=== PATIENT | female | born 1985 | race Caucasian/White ===

== ENCOUNTER 2021-03-03 16:16 | Emergency (ER) | payer SELFPAY ==
[2021-03-03 16:19] VITALS: BP 132/89; PULSE 108; RESP 18; TEMP 36.7; O2SAT 100; BMI 33.6
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
--- NOTE | 2021-03-03 17:18 | PC.NURSE ---
Sent pt to bathroom , to wash feet and hands. Put socks on feet, placed in a gown, and gave warm blankets.
[2021-03-03 17:21] LABS: Add Urine Microscopic? YES; Bilirubin Urine 1+ (Negative); Blood Urine 3+ (Negative); Glucose Urine UA Norm (Normal); Ketones Urine 1+ (Negative); Leukocyte Esterase Urine Negative (Negative); Nitrate Urine Negative (Negative); Protein Urine 1+ (Negative); Urine Appearance Cloudy (CLEAR); Urine Color Dark Yellow (Yellow); Urobilinogen Urine 1 mg/dL (Negative); pH Urine 5 (5-7)
[2021-03-03 17:25] VITALS: BP 135/88; PULSE 97; RESP 18; O2SAT 99
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
[2021-03-03 17:29] VITALS: BP 135/88; PULSE 112; RESP 18; O2SAT 99
[2021-03-03 17:35] LABS: Add Urine Culture? No; Bacteria Urine 1+ /hpf; Fine Granular Casts Urine 0-4 /lpf; Mucus Urine 2+ /hpf; Squamous Epithelial Cell Urine 0-4 /hpf (0-5); WBC Urine 0-4 /hpf (0-5)
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
[2021-03-03 17:57] LABS: Basophils % 0.3 %; Eosinophils # 0.1 10^3/uL (0.0-0.8); Eosinophils % 0.5 %; Hematocrit 39.6 % (37.0-47.0); Hemoglobin 12.8 g/dL (11.5-15.3); Lymphocytes # 1.3 10^3/uL (0.8-4.8); Lymphocytes % 8.7 %; Mean Corpuscular HGB Conc 32.3 g/dL (30.0-36.0); Mean Corpuscular Hemoglobin 27.1 pg (28.0-34.0); Mean Corpuscular Volume 83.7 fL (81-99); Mean Platelet Volume 9.8 fL (7.4-10.4); Monocytes # 0.6 10^3/uL (0.2-0.9); Monocytes % 4.2 %; Neutrophils # 12.96 10^3/uL (1.8-7.7); Neutrophils % 85.8 %; Nucleated Red Blood Cells % 0 %; Platelet Count 396 10^3/cmm (130-400); Red Blood Count 4.73 10^6/uL (4.1-5.3); Red Cell Distribution Width 13.6 % (12.1-15.1); White Blood Count 15.1 10^3/uL (4.0-10.0)
[2021-03-03 18:12] LABS: Alanine Aminotransferase 16 U/L (0-33); Albumin Level 4.4 g/dL (3.5-5.2); Alkaline Phosphatase 61 IU/L (35-105); Anion Gap 14.5 (5-19); Aspartate Amino Transferase 22 U/L (0-32); Blood Urea Nitrogen 11 mg/dL (6-20); Calcium 9.4 mg/dL (8.5-10.5); Carbon Dioxide 25 mmol/L (22-29); Chloride 104 mmol/L (98-107); Globulin 2.5 g/dL (1.3-4.6); Glomerular Filtration Rate 96.4 mL/min (90-130); Glucose 87 mg/dL (65-115); Osmolality Calculated 289 mOsm/kg (285-295); Potassium 3.5 mmol/L (3.5-5.1); Sodium 140 mmol/L (136-145); Total Bilirubin 0.6 mg/dL (0.15-1.2); Total Protein 6.9 g/dL (6.6-8.7)
[2021-03-03] MEDS: tetanus-dipt-pertussis 0.5 mL SDV IM (18:24)
[2021-03-03 18:29] VITALS: BP 143/97; PULSE 103; RESP 18; TEMP 37.2; O2SAT 98
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
== END 2021-03-03 18:51 | disposition home or self-care (01) ==
PROVIDERS: Emergency Provider Family Medicine; PCP Family Medicine
DX: S06.0X0A Concussion without loss of consciousness, initial encounter (principal); Y04.2XXA Assault by strike against or bumped into by another person, initial encounter; Z23 Encounter for immunization
CPT/HCPCS: 36415; 70450; 70486; 80053; 81001; 85025; 90471; 90715; 99283

== ENCOUNTER 2024-05-12 14:14 | Emergency (ER) | payer MEDICAID, SELFPAY ==
[2024-05-12 14:30] VITALS: BP 99/61; PULSE 109; RESP 14; TEMP 36.7; O2SAT 98; BMI 29.4
[2024-05-12 15:05] LABS: Basophils # 0.1 10^3/uL (0.0-0.1); Basophils % 0.4 %; Eosinophils % 0.1 %; Lymphocytes # 0.8 10^3/uL (0.8-4.8); Lymphocytes % 4.9 %; Mean Corpuscular HGB Conc 31.2 g/dL (30-55); Mean Corpuscular Hemoglobin 22.6 pg (27-33); Mean Corpuscular Volume 72.5 fl (85-98); Mean Platelet Volume 9.2 fL (7.4-10.4); Monocytes # 0.9 10^3/uL (0.2-0.9); Neutrophils # 13.67 10^3/uL (1.8-7.7); Neutrophils % 87.8 %; Nucleated Red Blood Cells % 0 %; Platelet Count 304 10^3/cmm (157-399); Red Blood Count 4.69 10^6/uL (3.85-5.65); Red Cell Distribution Width 20.7 % (12.1-15.1); White Blood Count 15.58 10^3/uL (3.29-11.43)
[2024-05-12 15:14] LABS: HCG, Serum Qual Negative (Negative)
[2024-05-12 15:19] LABS: Alanine Aminotransferase 9 U/L (0-33); Albumin Level 3.7 g/dL (3.5-5.2); Alkaline Phosphatase 70 U/L (35-105); Anion Gap 16.8 (5-19); Aspartate Amino Transferase 13 U/L (0-32); Blood Urea Nitrogen 10 mg/dL (6-20); Calcium 8.9 mg/dL (8.5-10.5); Carbon Dioxide 23 mmol/L (22-29); Chloride 98 mmol/L (98-107); Creatinine Clr Calc Pharmacy 90.9648; Globulin 3.2 g/dL (1.3-4.6); Glomerular Filtration Rate 81.2 mL/min (90-130); Glucose 131 mg/dL (65-115); Lipase 14 U/L (13-60); Osmolality Calculated 281 mOsm/kg (285-295); Sodium 135 mmol/L (136-145); Total Bilirubin 0.7 mg/dL (0.15-1.2); Total Protein 6.9 g/dL (6.6-8.7)
[2024-05-12 15:22] LABS: Potassium 2.8 mmol/L (3.5-5.1)
--- NOTE | 2024-05-12 16:26 | CTR_ITS ---
PROCEDURE INFORMATION: Exam: CT Abdomen And Pelvis With Contrast Exam date and time: 05/12/2024 5:51 PM Age: 38 years old Clinical indication: Abdominal pain; Localized; Right; Prior surgery; Surgery date: 6+ months; Surgery type: Gb TECHNIQUE: Imaging protocol: Computed tomography of the abdomen and pelvis with contrast. Radiation optimization: All CT scans at this facility use at least one of these dose optimization techniques: automated exposure control; mA and/or kV adjustment per patient size (includes targeted exams where dose is matched to clinical indication); or iterative reconstruction. Contrast material: OMNI 350; Contrast volume: 80 ml; Contrast route: INTRAVENOUS (IV); COMPARISON: US OB >= 14 wk fetus twins 07/02/2017 9:50 AM RADIATION DOSE METRICS: Total DLP (mGy-cm): 541.01 FINDINGS: Lungs: Lung bases are clear. No pleural effusion. Liver: Normal. No mass. Gallbladder and biliary ducts: The gallbladder has been resected. Pancreas: Normal. No ductal dilation. Spleen: Normal. No splenomegaly. Adrenal glands: Normal. No mass. Kidneys and ureters: There is diffuse abnormal low density throughout the right kidney in the right kidney is somewhat enlarged. Stomach and bowel: Unremarkable. No obstruction. No mucosal thickening. Appendix: No evidence of appendicitis. Intraperitoneal space: Unremarkable. No free air. No significant fluid collection. Vasculature: Unremarkable. No abdominal aortic aneurysm. Lymph nodes: Unremarkable. No enlarged lymph nodes. Urinary bladder: Diffuse bladder wall thickening is noted. Reproductive: Unremarkable as visualized. Bones/joints: Unremarkable. No acute fracture. Soft tissues: Unremarkable. CT/CT abdomen pelvis w con* [id number] IMPRESSION: Acute cystitis and right-sided pyelonephritis
--- NOTE | 2024-05-12 16:28 | ED_ITS ---
HPI - Abdominal Pain 2 General: Chief Complaint: Abdominal Pain Stated Complaint: Right side pain Time Seen by Provider: 05/12/24 16:23 History of Present Illness: Patient presents with right-sided abdominal and flank pain. This been going on for couple of days now. No nausea or vomiting. No dysuria. No altered mental status. No chest pain. Review of Systems 2 Narrative: Constitutional symptoms: Negative except as documented in HPI. Skin symptoms: Negative except as documented in HPI. Eye symptoms: Negative except as documented in HPI. ENMT symptoms: Negative except as documented in HPI. Respiratory symptoms: Negative except as documented in HPI. Cardiovascular symptoms: Negative except as documented in HPI. Gastrointestinal symptoms: Negative except as documented in HPI. Genitourinary symptoms: Negative except as documented in HPI. Musculoskeletal symptoms: Negative except as documented in HPI. Neurologic symptoms: Negative except as documented in HPI. Psychiatric symptoms: Negative except as documented in HPI. Endocrine symptoms: Negative except as documented in HPI. Physical Exam 2 Narrative: EXAM NARRATIVE: General: Alert, no acute distress. Skin: Warm, dry. Head: Normocephalic, atraumatic. Neck: Supple, trachea midline. Eye: Extraocular movements are intact. Ears, nose, mouth and throat: mucosa moist. Cardiovascular: Regular, Normal peripheral perfusion. Respiratory: Lungs are clear to auscultation, respirations are non-labored, breath sounds are equal, Symmetrical chest wall expansion. Gastrointestinal: Soft, Nontender, Non distended Musculoskeletal: Normal ROM, no deformity. Neurological: Alert and oriented, No focal neurological deficit observed. Psychiatric: Cooperative, appropriate mood & affect. Course 2 Vital Signs: Vital signs: Vital Signs Temperature 98.1 F 05/12/24 14:30 Pulse Rate 100 05/12/24 16:45 Respiratory Rate 16 05/12/24 16:45 Blood Pressure 110/77 05/12/24 16:45 Pulse Oximetry 100 05/12/24 16:45 Oxygen Delivery Me thod Room Air 05/12/24 16:45 MDM - Abdominal Pain Medical Decision Making Medical decision making: Differential diagnosis including but not limited to and based on the above HPI, review of systems and physical exam: Ureterolithiasis. Urinary tract infection. Appendicitis. Cholecystis. Musculoskeletal / back pain. Pyelonephritis Orders placed to evaluate differential diagnosis based on the above differential, HPI and physical exam Lab Review: Laboratory results were reviewed and interpreted by myself the emergency room physician. Patient does have some leukocytosis with a white count of 16. Potassium is low at 2.8 no renal failure. Liver enzymes are normal. Lipase is normal. Urinalysis is significant for urinary tract infection. CT of the abdomen and pelvis: Significant for cystitis and right-sided pyelonephritis. This was reviewed and interpreted by myself the emergency room physician. I also reviewed the radiology report. Reexamination: Assessment and plan: Cystitis Pyelonephritis ?IV fluids and IV Rocephin. IV Toradol. - Discharged home - Discussed findings and plan with patient. Answered any questions. - All laboratory values were reviewed and interpreted personally by myself, the ER physician - All imaging was reviewed and interpreted personally by myself, the ER physician. - Evaluation and treatment of this problem were appropriate in the emergency setting Lab Data 05/12/24 14:56 05/12/24 14:56 Labs/Radiology: Radiology Impressions Abdomen/Pelvis CT 05/12/24 16:26 IMPRESSION: Acute cystitis and right-sided pyelonephritis Laboratory Results WBC 15.58 10^3/uL (3.29-11.43) H 05/12/24 14:56 RBC 4.69 10^6/uL (3.85-5.65) 05/12/24 14:56 Hgb 10.60 g/dL (11.27-16.99) L 05/12/24 14:56 Hct 34.0 % (36-47) L 05/12/24 14:56 MCV 72.5 fl (85-98) L 05/12/24 14:56 MCH 22.6 pg (27-33) L 05/12/24 14:56 MCHC 31.2 g/dL (30-55) 05/12/24 14:56 RDW 20.7 % (12.1-15.1) H 05/12/24 14:56 Plt Count 304 10^3/cmm (157-399) 05/12/24 14:56 MPV 9.2 fL (7.4-10.4) 05/12/24 14:56 Neut % (Auto) 87.8 % 05/12/24 14:56 Lymph % (Auto) 4.9 % 05/12/24 14:56 [place] % (Auto) 6.0 % 05/12/24 14:56 Eos % (Auto) 0.1 % 05/12/24 14:56 Baso % (Auto) 0.4 % 05/12/24 14:56 Neut # (Auto) 13.67 10^3/uL (1.8-7.7) H 05/12/24 14:56 Lymph # (Auto) 0.8 10^3/uL (0.8-4.8) 05/12/24 14:56 [place] # (Auto) 0.9 10^3/uL (0.2-0.9) 05/12/24 14:56 Eos # (Auto) 0.0 10^3/uL (0.0-0.8) 05/12/24 14:56 Baso # (Auto) 0.1 10^3/uL (0.0-0.1) 05/12/24 14:56 Nucleated RBC % (auto) 0 % 05/12/24 14:56 Nucleated RBCs # 0.0 /100WBC 05/12/24 14:56 Sodium 135 mmol/L (136-145) L 05/12/24 14:56 Potassium 2.8 mmol/L (3.5-5.1) L* 05/12/24 14:56 Chloride 98 mmol/L (98-107) 05/12/24 14:56 Carbon Dioxide 23 mmol/L (22-29) 05/12/24 14:56 Anion Gap 16.8 (5-19) 05/12/24 14:56 BUN 10 mg/dL (6-20) 05/12/24 14:56 Creatinine 0.8 mg/dL (0.5-0.9) 05/12/24 14:56 GFR Calculation 81.2 mL/min (90-130) L 05/12/24 14:56 Glucose 131 mg/dL (65-115) H 05/12/24 14:56 Calculated Osmolality 281 mOsm/kg (285-295) L 05/12/24 14:56 Calcium 8.9 mg/dL (8.5-10.5) 05/12/24 14:56 Total Bilirubin 0.7 mg/dL (0.15-1.2) 05/12/24 14:56 AST 13 U/L (0-32) 05/12/24 14:56 ALT 9 U/L (0-33) 05/12/24 14:56 Alkaline Phosphatase 70 U/L (35-105) 05/12/24 14:56 Total Protein 6.9 g/dL (6.6-8.7) 05/12/24 14:56 Albumin 3.7 g/dL (3.5-5.2) 05/12/24 14:56 Globulin 3.2 g/dL (1.3-4.6) 05/12/24 14:56 Lipase 14 U/L (13-60) 05/12/24 14:56 HCG, Qual Negative (Negative) 05/12/24 14:56 Urine Color Yellow (Yellow) 05/12/24 16:39 Urine Appearance Turbid (CLEAR) A 05/12/24 16:39 Urine pH 5 (5-7) 05/12/24 16:39 Ur Specific [place] 1.010 (1.005-1.030) 05/12/24 16:39 Urine Protein 2+ (Negative) H 05/12/24 16:39 Urine Glucose (UA) Norm (Normal) 05/12/24 16:39 Urine Ketones Negative (Negative) 05/12/24 16:39 Urine Blood 3+ (Negative) H 05/12/24 16:39 Urine Nitrate Positive (Negative) A 05/12/24 16:39 Urine Bilirubin Neg (Negative) 05/12/24 16:39 Urine Urobilinogen Norm mg/dL (Negative) 05/12/24 16:39 Ur Leukocyte Esterase 2+ (Negative) H 05/12/24 16:39 Urine RBC 5-10 /hpf (0-2) H 05/12/24 16:39 Urine WBC Too numerous to cnt /hpf (0-5) H 05/12/24 16:39 Ur Squamous Epith Cells 0-4 /hpf (0-5) H 05/12/24 16:39 Amorphous Sediment Not Reportable 05/12/24 16:39 Urine Bacteria Trace /hpf (NONE) 05/12/24 16:39 All radiology interpretation(s) finalized by discharge Discharge Plan Discharge Patient Disposition: Home Clinical Impression: Pyelonephritis Acute cystitis Qualifiers: Qualified Code(s): N30.00 - Acute cystitis without hematuria Condition: Stable Prescriptions: New diclofenac sodium 50 mg tablet,delayed release (DR/EC) 50 mg PO Q12H Qty: 20 0RF cefdinir 300 mg capsule 300 mg PO BID 10 Days Qty: 20 0RF No Action diclofenac sodium 75 mg tablet,delayed release (DR/EC) 75 mg PO Q12H PRN (Reason: pain) Qty: 20 0RF Discharge Orders: Discharge ED (Routine); Ordered 05/12/24 Ordered By: Leni Grijalva Referrals: Jade Short MD [Primary Care Provider] - Discharge Diet: Usual diet Discharge Activity: Increase activity as tolerated Patient Instructions: Urinary Tract Infection in Women (ED) Activity Restrictions/Additional Instructions: Thank you for choosing [facility] for your healthcare needs today. Please realize this is an emergency room and that we are providing you with a medical screening exam and this may not be complete and all inclusive of all the testing and or work up that you may need to determine your ailment or severity of your illness. You have been screened and evaluated and felt safe for discharge. Health conditions do change or evolve sometimes and as such it is important that you follow up with your Primary Doctor to be re checked, 3-5 days is a general good time frame for follow up. You are always welcome to return to the ED for re assessment if your symptoms are worsening or you have new concerns Coding Level of Care Code ED Chief Talent Officer for Nicole Yen
[2024-05-12 16:45] VITALS: BP 110/77; PULSE 100; RESP 16; O2SAT 100
[2024-05-12 17:30] LABS: Urine Appearance Turbid (CLEAR); Urine Color Yellow (Yellow); pH Urine 5 (5-7)
[2024-05-12 17:31] LABS: Add Urine Microscopic? YES; Bacteria Urine TRACE /hpf; Bilirubin Urine Neg (Negative); Blood Urine 3+ (Negative); Glucose Urine UA Norm (Normal); Ketones Urine Negative (Negative); Leukocyte Esterase Urine 2+ (Negative); Nitrate Urine Positive (Negative); Protein Urine 2+ (Negative); Squamous Epithelial Cell Urine 0-4 /hpf (0-5); Urobilinogen Urine Norm (Negative); WBC Urine TOO NUMEROUS TO CNT /hpf (0-5)
[2024-05-12 17:32] LABS: Add Urine Culture? Yes
[2024-05-12] MEDS: iohexol 350 mg/mL 500 mL Btl (per mL) IV (17:55)
[2024-05-12] MEDS: cefTRIAXone 1,000 MG in sodium chloride 0.9% (plus) 50 ML 100 MG IV (18:19)
[2024-05-12] MEDS: ketorolac 30 mg/mL INJ IVP (18:29)
[2024-05-12] MEDS: ondansetron 2 mg/ML SDV 2 mL 4 MG IVP (18:31)
[2024-05-12] MEDS: potassium chloride ER 20 mEq Tablet 40 MEQ PO (18:52)
== END 2024-05-12 19:00 | disposition home or self-care (01) ==
PROVIDERS: Physician Assistant; Emergency Provider Emergency Medicine; PCP Family Medicine
DX: N12 Tubulo-interstitial nephritis, not specified as acute or chronic (principal); N30.00 Acute cystitis without hematuria
CPT/HCPCS: 36415; 74177; 80053; 81001; 83690; 84703; 85025; 87077; 87086; 87186; 96365; 96375; 99285; J0696; J1885; J2405; Q9967

== ENCOUNTER 2025-07-04 21:21 | Emergency (ER) | payer MEDICAID, SELFPAY ==
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
--- OUTSIDE RECORDS SUMMARY | 2024-11-20 08:00 | XMS_ITS ---
Author Organization [facility] Address [address], [place] [address] Care Team Providers Care Clay Pigeon Setter Name Role Phone ( [facility] ), PHYSICIAN NOT IDENTIFIED Primary Care Provider Pamela Jones [phone] Social History Sex Assigned At : Social History Observation Description Sex Assigned At Female Encounters Encounter Location Date Provider Diagnosis [address] [place] [address] [address] [place] [id number] 11/20/2024 Pamela Pacheco Plan Of Treatment No Information Progress Notes * RANJEET LONDONB:1985 (39 yo F)Acc No.[id number]:11/20/2024 Patient: JOSE R MORALES Provider: Sierra Pacheco DDS :1985 A ge:39 Y S ex:Female Date:11/20/2024 Address:[address] [place], [place] [id number] Pcp:PHYSICIAN NOT IDENTIFIED ( [facility] ) Billing Information: * Procedure Codes: * Electronic signature of Pineda Pacheco DDS on 07/04/2025 at 09:28 PM CDT Sign off status: Pending * Provider: Sierra Pacheco DDS Date: 11/20/2024 Generated for Sweetie ng/Fashaig/eTransmitting on: 0 07/04/2025 09:28 PM CDT
[2025-07-04 21:25] VITALS: BP 146/104; PULSE 104; RESP 17; TEMP 36.9; O2SAT 99; BMI 30.1
--- OUTSIDE RECORDS SUMMARY | 2025-07-04 21:28 | XMS_ITS | Clinical Summary ---
Author Organization [facility] Address [address] [place] [address] Care Team Providers Care Director Of Campus Recreation Name Role Phone Fabian Connolly MD Primary Care Provider [phone] Source Comments PLEASE NOTE, if this patient is a minor, it may be UNLAWFUL to discuss sensitive information that is contained in these records (such as FAMILY PLANNING, MENTAL HEALTH or SUBSTANCE ABUSE) with the minor patient's parent or other person without the patient's specific authorization.[facility] Allergies No known active allergies Medications naloxone (NARCAN) 4 mg/actuation nasal sprayIndicatio ns:Opioid abuse (CMS & HHS-HCC) Place 1 Rolla into the nostril(s) as needed for opioid reversal. 1 Each 2 5 Active propranoloL (INDERAL) 10 mg tabletIndicati ons:Anxiety TAKE 1 TABLET BY MOUTH THREE TIMES DAILY 90 Tablet 5 Active buprenorphine- naloxone (SUBOXONE) 8-2 mg SL filmIndication s:Opioid use disorder, severe (CMS & HHS-HCC) Place 1 Strip under the tongue 2 (two) times daily. Max Daily Amount: 2 Strips 14 Each 5 Active buprenorphine- naloxone (SUBOXONE FILM) 8-2 mg SL filmIndication s:Opioid use disorder, severe (CMS & HHS-HCC) Place 1 Strip under the tongue 2 (two) times daily. Max Daily Amount: 2 Strips 28 Each 5 025 Discontinued(Re order (E-Cancel Not Sent)) propranoloL (INDERAL) 10 mg tabletIndicati ons:Anxiety Take 1 Tablet by mouth 3 (three) times daily. 90 Tablet 5 025 Discontinued buprenorphine- naloxone (SUBOXONE FILM) 8-2 mg SL filmIndication s:Opioid use disorder, severe ([facility]) Place 1 Strip under the tongue 2 (two) times daily. 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[facility]) 08/26/2024 Opioid abuse ([facility]) 08/26/2024 Substance abuse ([facility]) 08/26/2024 Complex care coordination 08/26/2024 Encounters Date Type Department Care Team Description 06/26/2025 10:40 AM CDT Ancillary Services [facility] [address] [place] [address] Anthony Etienne 06/01/2025 3:40 PM CDT Office Visit [facility] Josh [address] [facility] [place] [address] Qing Manzo FNP 06/01/2025 2:20 PM CDT Office Visit [facility] [address] [facility] [place] [address] Kamala Domingo 05/19/2025 9:00 AM CDT Office Visit [facility] [address] [place] [address] Miguel Lo NP 05/19/2025 7:00 AM CDT Office Visit [facility] [address] [place] [address] Yue Brooks from Last 3 Months Social History Tobacco Use Types Packs/Day Years Used Date Smoking Tobacco: Never Passive Smoke Exposure: Never Smokeless Tobacco: Never Tobacco Cessation:Counseling Given: Yes Alcohol Use Standard Drinks/Week Comments Not Currently 0 (1 standard drink = 0.6 oz pur e alcohol) Social Connections Answer Date Recorded How often do you see or talk to people that you care about and feel close to? (For example: talking to friends on phone, visiting friends or family, going to faith or club meetings) 1 05/19/2025 Financial Resource Strain Answer Date R ecorded How hard is it for you to pa y for the very basics like food, housing, heating, medical care, and medications? 2 05/19 Stress Answer Date Recorded Do you feel these kinds of stress these days? 2 05/19/2025 Physical Activity Answer Date Recorded Physical Activity 0 05/19/2024 Food Insecurity Answer Date Recorded Food 0 08/07/2024 Transportation Needs Answer Date Record ed In the past 12 months, has l ack of transportation kept you from medical appointments, meetings, work or from getting things needed for daily living? 2 05/19/2025 Housing Stability Answer Date Recorded What is your living situation today? 2 05/19/2025 Safety and Environment Answer Date Janes rded Safety 0 05/19/2024 Utilities Answer Date Recorded Utilities 0 05/19/2024 Employment Answer Date Recorded Are you currently employed? 1 06/2025 Comments No Sex and Gender Information Value Date Recorded Sex Assigned at Female 10/17/2024 11:18 AM PST Legal Sex Female 8:52 AM PDT Gender Identity Female 08/26/2024 12:52 PM PDT Sexual Orientation Straight 08/26/2024 12 :52 PM PDT Last Filed Vital Signs Vital Sign Reading Time Taken Comments Blood Pressure 130/78 06/01/2025 1:36 PM CDT Pulse 99 06/01/2025 1:36 PM CDT Temperature 36.9 C (98.4 F) 06/01/2025 1:36 PM CDT Respiratory Rate 17 06/01/2025 1:36 PM CDT Oxygen Saturation 99% 06/01/2025 1:36 PM CDT Inhaled Oxygen Concentration - - Weight 68.3 kg (150 lb 9.6 oz) 06/01/2025 1:36 P M CDT Height 160 cm (5' 3 ) 06/01/2025 1:36 PM CDT Body Mass Index 26.68 06/01/2025 1:36 PM CDT Plan of Treatment Upcoming Encounters Date Type Department Care Team (Late st Contact Info) Description 07/24/2025 10:20 AM CDT Office Visit [facility] Josh [facility] [address] [place] [address] Qing Manzo FNP [address] [place] [phone] Health Maintenance Due Date Last Done Comments Anxiety Screening 1987 Diabetes Screening 1987 HPV Screening 1987 Hepatitis C Screening 1987 Pap + HPV 1987 Syphilis Screening 08/22/2001 HIV Screening 2002 Relationship Safety Screening/Counseling 2002 Cervical Cancer Screening 2008 Pap Smear 2008 Zag-DRRJC-74 ( season) 2024 Imm-Influenza (#1) 2025 09/29/2008 Depression Monitoring 09/01/2025 06/01/2025 , 05/19/2025, 05/19/2025, Additional history exists Hypertension Screening (#1) 06/01/2026 Tobacco Screening 06/01/2026 06/01/2025, 09/02/2024 Imm-DTaP/Tdap/Td (7 - Td or Tdap) 03/03/2031 03/03/2021, 07/16/2002, 04/20/1992, Additional history exists Imm-Hepatitis B Completed 01/29/1995, 08/13, 07/24/1994 Alcohol and Drug Screen Completed 05/19/20, 10/17/2024, 09/02/2024 Cervical Ablation/Cold-Knife Conization Discontinued Cervical Cryotherapy Discontinued Colposcopy Discontinued Endometrial Biopsy Discontinued Excision/Leep Discontinued HPV Genotyping Discontinued Vaginal Pap Discontinued Vulvoscopy Discontinued Goals Goal Patient Goal Type Associated Problems Recent Progress Patient-Stated? Author find stable housing General Yes Kamala Domingo Note: find stable housing Commit to an action plan towards addressing substance use Care Plan WEI: Continued substance use despite negative consequences and increased tolerance No Yue Brooks Visit with Care Team to discuss medicated assisted treatment (MAT) options and stability Care Plan WEI: Continued substance use despite negative consequences and increased tolerance No Yue Brooks Reduce symptoms and signs of withdrawal Care Plan Withdrawal No Yue Brooks Reduce or eliminate craving Care Plan Withdrawal No Yue Brooks Consult regarding detox Care Plan Withdrawal No Yue Brooks Discuss appropriate use of prescribed medications Care Plan Withdrawal No Yue Brooks Obtain medical treatment or follow up for any identified physical problems Care Plan Withdrawal No Yue Brooks Make follow up appointment Care Plan WEI: Continued substance use despite negative consequences and increased tolerance No Yue Brooks Note: Make follow up appointment with [facility]CN and provider. Procedures Procedure Name Priority Date/Time Associated Diagnosis Comments [facility] PDF REPORT DRUG Routine 06/26/2025 12:49 PM CDT [facility] URINE DRUG TEST Routine 06/26/2025 2:00 AM CDT Encounter for long-term (current) use of medications [facility] PDF REPORT DRUG Routine 06/01/2025 3:32 PM CDT [facility] URINE DRUG TEST Routine 06/01/2025 2:00 AM CDT Other prison (current) drug therapy [facility] PDF REPORT DRUG Routine 05/19/2025 9:32 AM CDT [facility] PDF REPORT DRUG Routine 05/19/2025 9:32 AM CDT [facility] URINE DRUG TEST Routine 05/19/2025 2:00 AM CDT Other prison (current) drug therapy from Last 3 Months Results * [facility] PDF REPORT DRUG Routine (06/26/2025 12:49 PM CDT) Only the most recent of4 resultswithin the time period is included. 06/26/2025 12:4 9 PM CDT 06/27/2025 8:31 PM CDT us Qing Manzo [facility] - NO BLOOD DRAW Final Resu lt [facility] [id number] [place] [address], * (ABNORMAL) [facility] URINE DRUG TEST Urine Routine (06/26/2025 2:00 AM CDT) Only the most recent of3 resultswithin the time period is included. CODEINE QUANTIFICATION negative 50 ng/mL [facility] MORPHINE QUANTIFICATION negative 50 ng/mL [facility] HYDROCODONE QUANTIFICATION negative 50 ng/mL [facility] NORHYDROCODONE QUANTIFICATION negative 50 ng/mL [facility] HYDROMORPHONE QUANTIFICATION negative 50 ng/mL [facility] OXYCODONE QUANTIFICATION negative 50 ng/mL [facility] NOROXYCODONE QUANTIFICATION negative 50 ng/mL [facility] OXYMORPHONE QUANTIFICATION negative 50 ng/mL [facility] BUPRENORPHINE QUANTIFICATION negative(A) 5 ng/mL [facility] NORBUPRENORPHINE QUANTIFICATION negative(A) 20 ng/mL [facility] FENTANYL QUANTIFICATION negative 1 ng/mL [facility] NORFENTANYL QUANTIFICATION negative 8 ng/mL [facility] METHADONE QUANTIFICATION negative 100 ng/mL [facility] EDDP (METHADONE METABOLITE) QUANTIFICATION negative 100 ng/mL [facility] TRAMADOL QUANTIFICATION negative 100 ng/mL [facility] A-VQLIUMOLZ-UWOQKNAS QUANTIFICATION negative 100 ng/mL [facility] D-BDKBRQXHU-DMLUSJNN QUANTIFICATION negative 100 ng/mL [facility] Tapentadol Quantification negative 50 ng/mL [facility] MEPERIDINE QUANTIFICATION negative 50 ng/mL [facility] NORMEPERIDINE QUANTIFICATION negative 50 ng/mL [facility] ALPHA-HYDROXYALPRAZOLAM QUANTIFICATION negative 20 ng/mL [facility] 6-VOFSQ-[id number] QUANTIFICATION negative 20 ng/mL [facility] LORAZEPAM QUANTIFICATION negative 40 ng/mL [facility] NORDIAZEPAM QUANTIFICATION negative 40 ng/mL [facility] TEMAZEPAM QUANTIFICATION negative 50 ng/mL [facility] OXAZEPAM QUANTIFICATION negative 40 ng/mL [facility] AMPHETAMINE QUANTIFICATION positive-86 07.937(A) 100 ng/mL [facility] METHYLPHENIDATE QUANTIFICATION negative 50 ng/mL [facility] RITALINIC ACID QUANTIFICATION negative 50 ng/mL [facility] CITALOPRAM/ESCITALOPRAM QUANTIFICATION negative 25 ng/mL [facility] N-DESMETHYLCITALOPRAM QUANTIFICATION negative 25 ng/mL [facility] Hydroxybupropion Quantification negative 50 ng/mL [facility] DULOXETINE QUANTIFICATION negative 25 ng/mL [facility] Fluoxetine Quantification negative 25 ng/mL [facility] Norfluoxetine Quantification negative 25 ng/mL [facility] Paroxetine Quantification negative 25 ng/mL [facility] Venlafaxine Quantification negative 100 ng/mL [facility] Desmethylvenlafaxine Quantification negative 100 ng/mL [facility] ARIPIPAZOLE QUANTIFICATION negative 5 ng/mL [facility] [id number]-[id number] Quantification negative 15 ng/mL [facility] CLOZAPINE QUANTIFICATION negative 25 ng/mL [facility] N-Desmethylclozapine Quantification negative 25 ng/mL [facility] Haloperidol Quantification negative 5 ng/mL [facility] Reduced Haloperidol Quantification negative 5 ng/mL [facility] Olanzapine Quantification negative 25 ng/mL [facility] Quetiapine Quantification negative 25 ng/mL [facility] NORQUETIAPINE QUANTIFICATION negative 25 ng/mL [facility] Risperidone Quantification negative 10 ng/mL [facility] Hydroxyrisperidone Quantification negative 25 ng/mL [facility] GABAPENTIN QUANTIFICATION negative 1000 ng/mL [facility] PREGABALIN QUANTIFICATION negative 400 ng/mL [facility] Ketamine Quantification negative 50 ng/mL [facility] Norketamine Quantification negative 50 ng/mL [facility] NALTREXONE QUANTIFICATION negative 10 ng/mL [facility] NALTREXOL QUANTIFICATION negative 10 ng/mL [facility] Naloxone Quantification negative(A) 20 ng/mL [facility] CZOLPIDEM QUANTIFICATION negative 10 ng/mL [facility] CARISOPRODOL QUANTIFICATION negative 100 ng/mL [facility] MEPROBAMATE QUANTIFICATION negative 100 ng/mL [facility] PHENOBARBITAL QUANTIFICATION negative 200 ng/mL [facility] SECOBARBITAL QUANTIFICATION negative 200 ng/mL [facility] BUTALBITAL QUANTIFICATION negative 200 ng/mL [facility] Amitriptyline Quantification negative 50 ng/mL [facility] Nortriptyline Quantification negative 50 ng/mL [facility] Imipramine Quantification negative 50 ng/mL [facility] Desipramine Quantification negative 50 ng/mL [facility] Cyclobenzaprine Quantification negative 50 ng/mL [facility] Dextromethorphan negative 50 ng/mL [facility]ITAL[facility] Levorphanol / Dextrorphan Quantification negative 50 ng/mL [facility] Phentermine Quantification negative 50 ng/mL [facility] METHAMPHETAMINE QUANTIFICATION positive-> 68099(A) 100 ng/mL [facility] METHAMPHETAMINE D/L-ISOMER RESOLUTION QUANTIFICATION positive-10 0.000(A) % d-isomer % d-isomer [facility] COCAINE METABOLITE QUANTIFICATION negative 50 ng/mL [facility] CTHC (MARIJUANA METABOLITE) QUANTIFICATION negative 15 ng/mL [facility] MDMA QUANTIFICATION negative 100 ng/mL [facility] 6-JOSE ALFREDO (HEROIN METABOLITE) QUANTIFICATION negative 10 ng/mL [facility] Phencyclidine Quantification negative 10 ng/mL [facility] ACETYL FENTANYL QUANTIFICATION Fen Neg 2 ng/mL [facility] ACETYL NORFENTANYL QUANTIFICATION Fen Neg 5 ng/mL [facility] ACRYL FENTANYL QUANTIFICATION Fen Neg 1 ng/mL [facility] CARFENTANIL QUANTIFICATION Fen Neg 2 ng/mL [facility] PARA-FLUOROFENTANYL QUANTIFICATION Fen Neg 1 ng/mL [facility] [id number] METABOLITE QUANTIFICATION negative 10 ng/mL [facility] WYA570 METABOLITE QUANTIFICATION negative 10 ng/mL [facility] RCS4 METABOLITE QUANTIFICATION negative 10 ng/mL [facility] XLR11/UR144 METABOLITE negative 10 ng/mL [facility] 5F-ADB-M7 negative 10 ng/mL [facility] [id number] negative 10 ng/mL [employer] CompanyFLOYD MEDICAL CENTERPlanet Metrics [id number] negative 10 ng/mL [facility]IT[facility] Pharm[facility] EUTYLONE QUANTIFICATION negative 10 ng/mL [facility] METHYLONE QUANTIFICATION negative 3 ng/mL [facility] XYLAZINE, URINE negative 10 ng/mL [email or web address] [facility] 4-HYDROXY XYLAZINE QUANTIFICATION negative 10 ng/mL [facility] MITRAGYNINE (KRATOM ALKALOID) QUANTIFICATION negative 1 ng/mL [facility] 5-RL-[id number] (KRATOM ALKALOID) QUANTIFICATION negative 1 ng/mL [facility] ETHYL GLUCURONIDE QUANTIFICATION negative 500 ng/mL [facility] ETHYL SULFATE QUANTIFICATION negative 500 ng/mL [facility] NICOTINE METABOLITE SCREEN negative 300 ng/mL [facility] CREATININE (CHEMICAL) normal-194. 9 >20 mg/dL mg/dL [facility] OXIDANT normal-0 <200 ug/mL ug/mL [facility] PH normal-6.0 4.5 - 9.5 [facility] SPECIFIC GRAVITY abnormal-1. 037(A) 1.003 - 1.035 [facility] Urine Urine specimen / Unknown 06/26/2025 2:00 AM CDT 06/27/2025 8:31 PM CDT Qingcornelia Manzo [facility] URINE AMBULATORY Edited Re sult - Final [facility] [id number] [place] [place] [address], from Last 3 Months Additional Health Concerns Active Problems Noted Date Diagnosed Date WEI: Continued substance use despite negative consequences and increased tolerance 05/19/2025 Withdrawal 05/19/2025 Insurance [employer]ICAID [facility] Care Teams Director Of Campus Recreation Relationship Specialty Start Date End Date Fabian Connolly MD [address] [place] [address] PCP - General 05/05/24
--- OUTSIDE RECORDS SUMMARY | 2025-07-04 21:28 | XMS_ITS | Encounter Summary ---
Author Organization [facility] Address [address] [place] [address] Care Team Providers Care Glass Handler Name Role Phone Gillian Orlando DO Primary Care Provider [phone] Encounter Details Date Type Department Care Team (Latest Contact Info) Description 11/30/1999 Outpatient Historical [address] [phone] Gladys Holloway MD [address] [place] [address] Volume depletion (Primary Dx); Acute bronchitis Social History Tobacco Use Types Packs/Day Years Used Date Smoking Tobacco: Never Assessed Comments Unknown Sex and Gender Information Value Date Recorded Sex Assigned at Not on file Legal Sex Female 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 BUILDER Gender Identity Not on file Sexual Orientation Not on file documented as of this encounter Plan of Treatment Not on file documented as of this encounter Visit Diagnoses Diagnosis Volume depletion- Primary Acute bronchitis documented in this encounter Additional Health Concerns Infection Onset Date Last Indicated Resolved Time MRSA Comment:Wound 04/28/13 04/30/2013 04/30/2013 documented as of this encounter Care Teams Glass Handler Relationship Specialty Start Date End Date Gillian Orlando DO [address] [place] [address] PCP - General Family Practice 04/22/18 documented as of this encounter
--- OUTSIDE RECORDS SUMMARY | 2025-07-04 21:28 | XMS_ITS | Encounter Summary ---
Author Organization [facility] Address [address] [place] [address] Care Team Providers Care Salesperson Trailers And Motor Homes Name Role Phone Gillian Orlando DO Primary Care Provider [phone] Encounter Details Date Type Department Care Team (Late st Contact Info) Description 07/01/2025 External Device Data [place] ABSTRACTION Provider, Abstract NO ADDRESS ON FILE Social History Tobacco Use Types Packs/Day Years Used Date Smoking Tobacco: Former Smokeless Tobacco: Never Alcohol Use Standard Drinks/Week Comments No 0 (1 standard drink = 0.6 oz pur e alcohol) Feeling Safe Answer Date Recorded Are you in a relationship wi th someone who hurts you emotionally and/or physically? No 11/12/2024 Comments No Sex and Gender Information Value Date Recorded Sex Assigned at Not on file Legal Sex Female 1:59 AM CONE TREATER Gender Identity Not on file Sexual Orientation Not on file documented as of this encounter Plan of Treatment Not on file documented as of this encounter Visit Diagnoses Not on filedocumented in this encounter Care Teams Salesperson Trailers And [employer] Relationship Specialty Start Date End Date Gillian Orlando DO [address] [place] [phone] PCP - General Family Practice 04/22/18 documented as of this encounter
--- OUTSIDE RECORDS SUMMARY | 2025-07-04 21:28 | XMS_ITS | Encounter Summary ---
Author Organization [facility] Address [address] [place] [address] Care Team Providers Care Learning Specialist Name Role Phone Gillian Orlando DO Primary Care Provider Encounter Details Date Type Department Care Team (Latest Contact Info) Description 06/20/2000 Outpatient Historical [address] [phone] Darrell Boykin MD [address] [place] [phone] Dermatophytosis of the body (Primary Dx) Social History Tobacco Use Types Packs/Day Years Used Date Smoking Tobacco: Never Assessed Comments Unknown Sex and Gender Information Value Date Recorded Sex Assigned at Not on file Legal Sex Female 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 FAT COOK FRY Gender Identity Not on file Sexual Orientation Not on file documented as of this encounter Plan of Treatment Not on file documented as of this encounter Visit Diagnoses Diagnosis Dermatophytosis of the body- Primary documented in this encounter Additional Health Concerns Infection Onset Date Last Indicated Resolved Time MRSA Comment:Wound 04/28/13 04/30/2013 04/30/2013 documented as of this encounter Care Teams Learning Specialist Relationship Specialty Start Date End Date Gillian Orlando DO [address] [place] [phone] PCP - General Family Practice 04/22/18 documented as of this encounter
--- OUTSIDE RECORDS SUMMARY | 2025-07-04 21:28 | XMS_ITS | Encounter Summary ---
Author Organization [facility] Address [address] [place] [address] Care Team Providers Care Wood Dowel Machine Operator Name Role Phone Gillian Orlando DO Primary Care Provider [phone] Encounter Details Date Type Department Care Team (Latest Contact Info) Description 04/27/1999 Outpatient Historical [address] [phone] Hong Gomes MD [address] [phone] Enlargement of lymph nodes (Primary Dx) Social History Tobacco Use Types Packs/Day Years Used Date Smoking Tobacco: Never Assessed Comments Unknown Sex and Gender Information Value Date Recorded Sex Assigned at Not on file Legal 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 Gender Identity Not on file Sexual Orientation Not on file documented as of this encounter Plan of Treatment Not on file documented as of this encounter Visit Diagnoses Diagnosis Enlargement of lymph nodes- Primary documented in this encounter Additional Health Concerns Infection Onset Date Last Indicated Resolved Time MRSA Comment:Wound 04/28/13 04/30/2013 04/30/2013 documented as of this encounter Care Teams Wood Dowel Machine Operator Relationship Specialty Start Date End Date Gillian Orlando DO [address] [place] [address] PCP - General Family Practice 04/22/18 documented as of this encounter
--- OUTSIDE RECORDS SUMMARY | 2025-07-04 21:28 | XMS_ITS | Encounter Summary ---
Author Organization [facility] Address [address] [place] [address] Care Team Providers Care Web Page Designer Name Role Phone Gillian Orlando DO Primary Care Provider [phone] Encounter Details Date Type Department Care Team (Latest Contact Info) Description 11/23/1999 Outpatient Historical [address] [phone] Jerry Bal MD [address] [place] [phone] Bronchiectasis (Primary Dx) Social History Tobacco Use Types Packs/Day Years Used Date Smoking Tobacco: Never Assessed Comments Unknown Sex and Gender Information Value Date Recorded Sex Assigned at Not on file Legal Sex Female 5:37 AM RESIDENT CARE SPEC Gender Identity Not on file Sexual Orientation Not on file documented as of this encounter Plan of Treatment Not on file documented as of this encounter Visit Diagnoses Diagnosis Bronchiectasis- Primary documented in this encounter Additional Health Concerns Infection Onset Date Last Indicated Resolved Time MRSA Comment:Wound 04/28/13 04/30/2013 04/30/2013 documented as of this encounter Care Teams Web Page Designer Relationship Specialty Start Date End Date Gillian Orlando DO [address] [place] [phone] PCP - General Family Practice 04/22/18 documented as of this encounter
--- OUTSIDE RECORDS SUMMARY | 2025-07-04 21:28 | XMS_ITS ---
Care Plan Created on: July 04, 2025 Sole Mccann : 1985 Sex: Female Author Organization [facility] Address [address] [place] [address] Care Team Providers Care Firearms Instructor Name Role Phone Fabian Connolly MD Primary Care Provider [phone] Active Problems Problem Noted Date Diagnosed Date GEN (generalized anxiety disorder) 09/02/2024 Moderate episode of recurren t major depressive disorder (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) 08/26/2024 Opioid abuse ([facility]) 08/26/2024 Substance abuse ([facility]) 08/26/2024 Complex care coordination 08/26/2024 Additional Health Concerns Active Problems Noted Date Diagnosed Date WEI: Continued substance use despite negative consequences and increased tolerance 05/19/2025 Withdrawal 05/19/2025 Goals Goal Patient Goal Type Associated Problems [...] use despite negative consequences and increased tolerance Yue Prado Reduce symptoms and signs of withdrawal Care [...] follow up appointment with RCN and provider. Interventions Care Plan Interventions Intervention Entry Date Outcome *Free text Goal Name 05/19/2025 MOUD Referral 05/19/2025 Attend Initial MAT Evaluation Appointment 05/19/2025 Attest to MAT Program Agreement 05/19/2025 Related Goals and Interventions Goal Associated Intervent ions Commit to an action plan tow ards addressing substance use Attest to MAT Program Agreement Visit with Care Team to disc uss medicated assisted treatment (MAT) options and stability Attend Initial MAT Evaluation Appointmen t Consult regarding detox MOUD Referral Make follow up appointment *Free text Go al Name
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
--- OUTSIDE RECORDS SUMMARY | 2025-07-04 21:28 | XMS_ITS | Encounter Summary ---
Author Organization [facility] Address [address] [place] [address] Care Team Providers Care Outpatient Therapist Name Role Phone Gillian Orlando DO Primary Care Provider +1- [phone] Encounter Details Date Type Department Care Team (Latest Contact Info) Description 08/23/1999 Outpatient Historical [address] [phone] Darrell Boykin MD [address] [place] [address] Dysfunct eustachian tube (Primary Dx); Allergy, unspecified not elsewhere classified Social History Tobacco Use Types Packs/Day Years Used Date Smoking Tobacco: Never Assessed Comments Unknown Sex and Gender Information Value Date Recorded Sex Assigned at Not on file Legal Sex Female 5:37 AM TOW PICKER Gender Identity Not on file Sexual Orientation Not on file documented as of this encounter Plan of Treatment Not on file documented as of this encounter Visit Diagnoses Diagnosis Dysfunct eustachian tube- Primary Dysfunction of Eustachian tube Allergy, unspecified not elsewhere classified documented in this encounter Additional Health Concerns Infection Onset Date Last Indicated Resolved Time MRSA Comment:Wound 04/28/13 04/30/2013 04/30/2013 documented as of this encounter Care Teams Outpatient Therapist Relationship Specialty Start Date End Date Gillian Orlando DO [address] [place] [address] PCP - General Family Practice 04/22/18 documented as of this encounter
--- OUTSIDE RECORDS SUMMARY | 2025-07-04 21:28 | XMS_ITS | Encounter Summary ---
Author Organization [facility] Address [address] [place] [address] Care Team Providers Care Reo Asset Manager Name Role Phone Gillian Orlando DO Primary Care Provider [phone]- [phone] Encounter Details Date Type Department Care Team (Latest Contact Info) Description 06/02/2008 Outpatient Historical [address] [phone] Lee Richard MD [address] [place] [address] Supervision of Other Normal Social History Tobacco Use Types Packs/Day Years Used Date Smoking Tobacco: Never Assessed Comments Yes Sex and Gender Information Value Date Recorded Sex Assigned at Not on file Legal Sex Female 5:37 AM HEAD OF QUALITY Gender Identity Not on file Sexual Orientation Not on file documented as of this encounter Plan of Treatment Not on file documented as of this encounter Procedures Procedure Name Priority Date/Time Associated Diagnosis Comments GC, GENITAL Routine 06/02/2008 3:22 PM CDT CHLAMYDIA, GENITAL Routine 06/02/2008 3: 22 PM CDT PATHOLOGY Routine 06/02/2008 7:19 AM CDT documented in this encounter Results * GC DNA AMPLIFICATION (06/02/2008 3:22 PM CDT) FINAL REPORT DNA Amplification Assay: negative for Neisseria gonorrhoeae This procedure is approved for testing only on endocervical and male urethral swab specimens and male urine. The use of specimens from any other body site has not been validated. INTERFACE SYSTEM Specimen from genital system (specimen) CERVIX UTERI STRUCTURE / Unknown 06/02/2008 3:22 PM CDT 06/02/2008 10:41 PM CDT Lee Richard MD MICROBIOLOGY - GENERAL ORDERA BLEManuel Final Result Performing Organization Address [facility] Phone Number INTERFACE SYSTEM Refer to clinic/hospital department * CHLAMYDIA DNA AMPLIFICATION (06/02/2008 3:22 PM CDT) FINAL REPORT DNA Amplification Assay: negative for Chlamydia trachomatis * This procedure is approved for testing only on endocervical and male urethral swab specimens and urine. The use of specimens from any other body site has not been validated. INTERFACE SYSTEM Specimen from genital system (specimen) CERVIX UTERI STRUCTURE / Unknown 06/02/2008 3:22 PM CDT 06/02/2008 10:41 PM CDT Lee Richard MD MICROBIOLOGY - GENERAL MG MURILLO Final Result Performing Organization Address [facility] Phone Number INTERFACE SYSTEM Refer to clinic/hospital department * PATHOLOGY (06/02/2008 7:19 AM CDT) PATHOLOGY/CY TOLOGY REPORT [facility] Anatomic Pathology Dept [facility] [address] Patient: SOLE MCCANN Accn No: [id number] Collected: 06/02/2008 7:19:00 AM CYTOLOGY PERINATAL INSTRUCTOR FINAL REPORT - - JOINER PAP History Specimen Source: Endocervical/Cervic al LMP: 02/25/08 Last Pap Date: FIRST ONE Specimen Adequacy Satisfactory for interpretation. The smear lacks endocervical or metaplastic cells. Diagnosis NEGATIVE FOR INTRAEPITHELIAL LESION OR MALIGNANCY. Fungal organisms morphologically consistent with Geovanna. Supervising Nurse LESA 06/08/08 Completed by: MILAGRO WERNER BSCT(ASCP) (Electronically signed by) 06/08/08 Comment Repeat Pap smear within 6-12 months. Important Info About Pap Smears HPV Testing [...] treating physician in consultation with his/her patient. INTERFACE SYSTEM 06/02/2008 7:19 AM CDT Lee Richard MD PATHOLOGY/CYTOLOGY ORDERABLES Final Result INTERFACE SYSTEM Refer to clinic/hospital department documented in this encounter Visit Diagnoses Diagnosis Supervision of other normal documented in this encounter Additional Health Concerns Infection Onset Date Last Indicated Resolved Time MRSA Comment:Wound 04/28/13 04/30/2013 04/30/2013 documented as of this encounter Care Teams Reo Asset Manager Relationship Specialty Start Date End Date Gillian Orlando DO [address] [place] [address] PCP - General Family Practice 04/22/18 documented as of this encounter
--- OUTSIDE RECORDS SUMMARY | 2025-07-04 21:28 | XMS_ITS | Encounter Summary ---
Author Organization [facility] Address [address] [place] [address] Care Team Providers Care National Stormwater Leader Name Role Phone Gillian Orlando DO Primary Care Provider +1- [phone] Encounter Details Date Type Department Care Team (Latest Contact Info) Description 12/08/1999 Outpatient Historical [address] [phone] Hong Gomes MD [address] [phone] Volume depletion (Primary Dx) Social History Tobacco Use Types Packs/Day Years Used Date Smoking Tobacco: Never Assessed Comments Unknown Sex and Gender Information Value Date Recorded Sex Assigned at Not on file Legal Sex Female 5:37 AM ADVERTISING SALES ASSISTANT Gender Identity Not on file Sexual Orientation Not on file documented as of this encounter Plan of Treatment Not on file documented as of this encounter Visit Diagnoses Diagnosis Volume depletion- Primary documented in this encounter Additional Health Concerns Infection Onset Date Last Indicated Resolved Time MRSA Comment:Wound 04/28/13 04/30/2013 04/30/2013 documented as of this encounter Care Teams National Stormwater Leader Relationship Specialty Start Date End Date Gillian Orlando DO [address] [place] [address] PCP - General Family Practice 04/22/18 documented as of this encounter
--- OUTSIDE RECORDS SUMMARY | 2025-07-04 21:28 | XMS_ITS | Encounter Summary ---
Author Organization [facility] Address [address] [place] [address] Care Team Providers Care Community Arts Centre Manager Name Role Phone Gillian Orlando DO Primary Care Provider +1- [phone] Encounter Details Date Type Department Care Team (Latest Contact Info) Description 04/12/1999 Outpatient Historical [address] [phone] Hong Gomes MD [address] [phone] Enlargement of lymph nodes (Primary Dx) Social History Tobacco Use Types Packs/Day Years Used Date Smoking Tobacco: Never Assessed Comments Unknown Sex and Gender Information Value Date Recorded Sex Assigned at Not on file Legal Sex Female 5:37 AM ASSEMBLY DEPARTMENT SUPERVISOR Gender Identity Not on file Sexual Orientation Not on file documented as of this encounter Plan of Treatment Not on file documented as of this encounter Visit Diagnoses Diagnosis Enlargement of lymph nodes- Primary documented in this encounter Additional Health Concerns Infection Onset Date Last Indicated Resolved Time MRSA Comment:Wound 04/28/13 04/30/2013 04/30/2013 documented as of this encounter Care Teams Community Arts Centre Manager Relationship Specialty Start Date End Date Gillian Orlando DO [address] [place] [address] PCP - General Family Practice 04/22/18 documented as of this encounter
--- OUTSIDE RECORDS SUMMARY | 2025-07-04 21:29 | XMS_ITS | Encounter Summary ---
Author Organization [facility] Address [address] [place] [address] Care Team Providers Care Tile Power Shear Operator Name Role Phone Gillian Orlando DO Primary Care Provider +1- [phone] Encounter Details Date Type Department Care Team (Latest Contact Info) Description 07/23/2000 Outpatient Historical [address] [phone] Darrell Boykin MD [address] [place] [address] Allergy, unspecified not elsewhere classified (Primary Dx); Allergic rhinitis, cause unspecified; Dermatophytosis of the body Social History Tobacco Use Types Packs/Day Years Used Date Smoking Tobacco: Never Assessed Comments Unknown Sex and Gender Information Value Date Recorded Sex Assigned at Not on file Legal Sex Female 5:37 AM BUTCHER CHICK[employer] Gender Identity Not on file Sexual Orientation Not on file documented as of this encounter Plan of Treatment Not on file documented as of this encounter Visit Diagnoses Diagnosis Allergy, unspecified not elsewhere classified- Primary Allergic rhinitis, cause unspecified Dermatophytosis of the body documented in this encounter Additional Health Concerns Infection Onset Date Last Indicated Resolved Time MRSA Comment:Wound 04/28/13 04/30/2013 04/30/2013 documented as of this encounter Care Teams Tile Power Shear Operator Relationship Specialty Start Date End Date Gillian Orlando DO [address] [place] [phone] PCP - General Family Practice 04/22/18 documented as of this encounter
--- OUTSIDE RECORDS SUMMARY | 2025-07-04 21:29 | XMS_ITS | Patient Health Record ---
Author Organization [facility] Address [address] [place] [address] Care Team Providers Care Journalism Professor Name Role Phone ( [facility] ), PHYSICIAN NOT IDENTIFIED Primary Care Provider Unavailable Pamela Pacheco Unavailable [phone] Emily Langford Unavailable Ciaran Hill Unavailable [phone] Allergies No Known Allergies Reason For Referral No Information Medications Medication SIG (Take, Route, Frequency, Duration) Notes Start Date End Date Status Amoxicillin 500 MG Capsule 1 capsule Ora lly every 8 hrs; Duration: 10 days 10/21/2024 Active Social History Sex Assigned At : Social History Observation Description Sex Assigned At Female Vital Signs Heart Rate 97 /min 10/21/2024 Temperature 98.6 degrees Fahrenheit 10/21/2024 Blood pressure diastolic 94 mm Hg 10/21/2024 Blood pressure systolic 160 mm Hg 10/21/2024 Encounters Encounter Location Date Provider Diagnosis [address] [facility] [address] [place] [address] 10/21/[address] [place] [address] 01/05/2025 [facility] [address] [place] [address] 10/21/2024 [facility] Plan Of Treatment No Information Insurance Providers Payer Name Payer Address Payer Phone Subscriber Number Group Number Insured Name Patient Relationship to Insured Coverage Start Date Coverage End Date [employer] [address] [address] [place] [phone] [id number] JOSE R OLNDON Self - patient is the insured Medical (General) History Medical History History ICD Code Asthma Thyroid diseae Diabetic Hypertension
--- NOTE | 2025-07-04 23:03 | ED_ITS ---
HPI - Skin/Abscess/Foreign Bdy General: Chief complaint: Skin/Abscess/Foreign Body Stated complaint: rash on legs now face Time Seen by Provider: 07/04/25 21:23 Source: patient Mode of arrival: ambulatory Limitations: no limitations History of Present Illness: Patient is a 39-year-old female presents emergency department complaining of rash to left foot as well as to face. Rash has been going on for a while she states, it was primarily to the foot but now is to her chin and states that it is itchy. She has been taking Benadryl without relief. States that she has been applying [id number] poison shel[place] cream with no relief. She does note that a while back the rash seem to start after she went [place]. No trouble breathing, angioedema, or other symptoms of anaphylaxis. MD complaint: rash Onset (ago): week(s) Tetanus up to date: yes Location: face and L foot Severity: mild Quality: burning and pruritic Pain Consistency: constant Associated symptoms: Deny chills, fever(s), nausea or vomiting Treatments prior to arrival: OTC topical medication and Benadryl Related Data Previous Rx's ?Medication ?Instructions ?Recorded diclofenac sodium 75 mg 75 mg PO Q12H PRN pain #20 t abs 03/03/21 tablet,delayed release diclofenac sodium 50 mg 50 mg PO Q12H #20 tabs 05/12 tablet,delayed release triamcinolone acetonide 0.5 % 1 applic topical BID #15 grams 07/04/25 topical ointment Allergies Allergy/AdvReac Type Severity Reaction Status Date / Time No Known Allergies Allergy Verified 03/03/21 17:10 Review of Systems General: Reports: 10 or more systems reviewed and unremarkable except in HPI and below Const: Denies: fever(s) or chills Card: Denies: chest pain Resp: Denies: dyspnea GI: Denies: abdominal pain, nausea, vomiting or diarrhea Musc: Denies: extremity pain or joint pain Skin/Breast: Reports: rash and pruritus; Denies: skin pain, skin tenderness or new lesions Neuro: Denies: headache(s) Physical Exam Const: COMMON NORMALS: no acute distress and no limitations GENERAL APPEARANCE: cooperative, comfortable and well developed ORIENTATION/CONSCIOUSNESS: Yes awake HENMT: COMMON NORMALS: normocephalic, atraumatic and hearing grossly normal bilaterally HEAD & SCALP: normocephalic and atraumatic Eye: COMMON NORMALS: Equal, round and reactive pupils present, EOMs intact bilaterally and conjunctivae normal CONJUNCTIVA: Yes conjunctivae normal PUPIL: Yes Equal, round and reactive pupils present Neck/C-Spine: COMMON NORMALS: full ROM, supple and no JVD Resp: COMMON NORMALS: normal respiratory effort, No retractions, No use of accessory muscles and clear to auscultation bilaterally AUSCULTATION: clear to auscultation bilaterally Cardio: COMMON NORMALS: no JVD, regular rate, regular rhythm, No clicks present (Cardio), No murmurs present (Cardio) and No rub (Cardio) RATE: regular rate RHYTHM: regular rhythm Psych: COMMON NORMALS: mental status grossly normal and Normal thought process present THOUGHT PROCESS: Normal thought process present Skin: NARRATIVE SKIN EXAM: Erythematous crusting rash to dorsum of left foot as well as to patient's chin. No active oozing or bleeding. Edges seem to be well-demarcated. No fluctuance or induration. No warmth. Course Vital Signs: Vital signs: Vital Signs Temperature 98.5 F 07/04/25 21:25 Pulse Rate 104 H 07/04/25 21:25 Respiratory Rate 17 07/04/25 21:25 Blood Pressure 146/104 07/04/25 21:25 Pulse Oximetry 99 07/04/25 21:25 Oxygen Delivery Me thod Room Air 07/04/25 21:25 MDM - Skin/Abscess/Foreign Bdy Medicial Decision Making This is a nonspecific rash, appearing most compatible with a contact dermatitis. We will prescribe topical triamcinolone and have her take Benadryl and Pepcid for the itching, ultimately to monitor her condition and make sure that it improves as she has appropriate follow-up in place if it does not. She is given signs and symptoms to return, specifically of anaphylaxis, and is discharged at this time in stable condition. No radiology studies performed this visit Discharge Plan Discharge Patient Disposition: Home Clinical Impression: Contact dermatitis Qualifiers: Contact dermatitis type: unspecified Contact dermatitis trigger: unspecified trigger Qualified Code(s): L25.9 - Unspecified contact dermatitis, unspecified cause Condition: Stable Prescriptions: New triamcinolone acetonide 0.5 % ointment 1 applic topical BID Qty: 15 0RF No Action diclofenac sodium 75 mg tablet,delayed release (DR/EC) 75 mg PO Q12H PRN (Reason: pain) Qty: 20 0RF diclofenac sodium 50 mg tablet,delayed release (DR/EC) 50 mg PO Q12H Qty: 20 0RF Discharge Orders: Discharge ED (Routine); Ordered 07/04/25 Ordered By: Darrell Ng Referrals: Jade Short MD [Primary Care Provider, Family Practice] Patient Instructions: Patient Portal & [facility] Instructions Activity Restrictions/Additional Instructions: Apply the topical triamcinolone as directed. Avoid any further contact with potential offending agents. Please follow-up with regular provider if your rash does not improve in the next week. Return with any symptoms of anaphylaxis such as shortness of breath or throat closure. May take a Benadryl or Pepcid for the itching. Print Language: Guamanian Coding Level of Care Code ED [employer] Technician for Nicole Yen
== END 2025-07-04 23:06 | disposition home or self-care (01) ==
PROVIDERS: Emergency Provider Physician Assistant; PCP Family Medicine
DX: L25.9 Unspecified contact dermatitis, unspecified cause (principal)
CPT/HCPCS: 99283

== ENCOUNTER 2025-08-31 10:24 | Inpatient (IN) | payer MEDICAID, SELFPAY ==
[2025-08-31 10:26] VITALS: BP 129/84; PULSE 116; RESP 17; TEMP 36.9; O2SAT 97; BMI 28.3
--- NOTE | 2025-08-31 10:32 | ED.C_ITS ---
Documented by User: ALMA Bowser 08/31/25 12:07 HPI - Psych 2 General: Chief Complaint: Psychiatric Symptoms Stated Complaint: SI Source: patient and EMS Mode of arrival: EMS Limitations: no limitations History of Present Illness: Patient is a 40-year-old female who presents to the emergency department by EMS for suicidal ideations. EMS reports that a bystander called them, due to noticing that the patient had been standing on the side of the road and actively trying to jump in front of oncoming traffic. Also had reported that she had been cutting herself. I asked the patient why she has been doing this, she states that her ex recently brought new girlfriend around, and this made the patient very upset. States that she has been essentially homeless, has been living with different friends. States that she has never felt suicidal before in the past, has never had any suicidal attempt and does not take any medications. States she has never been seen by a psychiatrist. She is not endorsing any HI or hallucinations. Denies any drug use. She is very tearful at this time. MD complaint: suicidal ideation Context: significant life stressor Associated symptoms: Reports depression and suicidal ideation; Deny auditory hallucinations, visual hallucinations or homicidal ideation If self harm: admits thoughts of self harm and has acted on plan Related Data Home Medications ?Medication ?Instructions ?Recorded ?Confirmed No Known Home Medications 08/31/2508/13 Allergies Allergy/AdvReac Type Severity Reaction Status Date / Time No Known Allergies Allergy Verified 03/03/21 17:10 Review of Systems 2 General: Reports: 10 or more systems reviewed and unremarkable except in HPI and below Const: Denies: fever(s), chills or fatigue Eyes: Denies: change in vision ENMT: Denies: throat pain, ear or mastoid pain or nasal discharge Card: Denies: chest pain, palpitations, swelling of feet/ankles or lightheadedness Resp: Denies: dyspnea, productive cough or wheezing GI: Denies: abdominal pain, nausea, vomiting, diarrhea or constipation : Denies: flank pain, difficulty voiding, dysuria or urinary frequency Musc: Denies: neck pain, back pain or joint pain Skin/Breast: Denies: rash Neuro: Denies: headache(s), numbness in extremities or weakness in extremities Psych: Reports: anxiety, depression and suicidal ideation; Denies: visual hallucinations, auditory hallucinations, tactile hallucinations or homicidal ideation Physical Exam 2 Const: COMMON NORMALS: patient oriented x3 and no limitations GENERAL APPEARANCE: cooperative ORIENTATION/CONSCIOUSNESS: Yes awake, Yes oriented to person, Yes oriented to place and Yes oriented to time HENMT: COMMON NORMALS: normocephalic, atraumatic and hearing grossly normal bilaterally HEAD & SCALP: normocephalic and atraumatic Eye: COMMON NORMALS: Equal, round and reactive pupils present, EOMs intact bilaterally and conjunctivae normal CONJUNCTIVA: Yes conjunctivae normal P UPIL: Yes Equal, round and reactive pupils present Neck/C-Spine: COMMON NORMALS: full ROM, supple and no JVD Resp: COMMON NORMALS: normal respiratory effort, No retractions, No use of accessory muscles and clear to auscultation bilaterally AUSCULTATION: clear to auscultation bilaterally Cardio: COMMON NORMALS: no JVD, regular rate, regular rhythm, No clicks present (Cardio), No murmurs present (Cardio) and No rub (Cardio) RATE: r egular rate RHYTHM: regular rhythm Extremity: COMMON NORMALS: normal to inspection, full ROM and capillary refill normal Neuro: COMMON NORMALS: patient oriented x3, moves all extremities, no focal motor deficits and no sensory deficits noted SENSORIUM/ORIENTATION: Yes oriented to person, Yes oriented to place and Yes oriented to time Psych: ATTITUDE: Yes calm ACTIVITY/MOTOR BEHAVIOR: Yes Avoids eye contact (attititude/behavior) SPEECH: Yes soft MOOD & AFFECT: Yes anxious, Yes sad and Yes tearful THOUGHT CONTENT: Yes Suicidality present, No Homicidality present and No Hallucination(s) present Skin: COMMON NORMALS: no rashes or lesions noted GENERAL SKIN EXAM: no rashes or lesions noted Course 2 Vital Signs: Vital signs: Vital Signs Temperature 98.4 F 08/31/25 10:26 Pulse Rate 116 H 08/31/25 10:26 Respiratory Rate 17 08/31/25 10:26 Blood Pressure 129/84 08/31/25 10:26 Pulse Oximetry 97 08/31/25 10:26 Oxygen Delivery Me thod Room Air 08/31/25 10:26 MDM - Psych Medical Decision Making Patient presented to the Emergency Department by ambulance due to reportedly jumping out in front of traffic to try and end her life, she noted to me that this was because her has been bringing around a new girlfriend this has greatly upset her. Also had been noted to be cutting her self, bystander was the one who called EMS. She has been cooperative here in the ED, denying SI actively but certainly concerning with her attempts this afternoon. She is cleared medically, other than potassium being 3.1 in which she is given p.o. potassium chloride and will have labs ordered in the morning. I spoke to Dr. Erickson, agreeing to except to the neuro psychiatric unit. Dr. Grijalva informed of patient's case and will put in admit orders. A 6-hour hold placed, affidavits in chart. Lab Data 08/31/25 10:41 08/31/25 10:41 Laboratory Results WBC 5.38 10^3/uL (3.29-11.43) 08/31/25 10:41 RBC 4.20 10^6/uL (3.85-5.65) 08/31/25 10:41 Hgb 11.70 g/dL (11.27-16.99) 08/31/25 10:41 Hct 35.5 % (36-47) L 08/31/25 10:41 MCV 84.5 fl (85-98) L 08/31/25 10:41 MCH 27.9 pg (27-33) 08/31/25 10:41 MCHC 33.0 g/dL (30-55) 08/31/25 10:41 RDW 15.4 % (12.1-15.1) H 08/31/25 10:41 Plt Count 330 10^3/cmm (157-399) 08/31/25 10:41 MPV 9.5 fL (7.4-10.4) 08/31/25 10:41 Neut % (Auto) 66.2 % 08/31/25 10:41 Lymph % (Auto) 20.1 % 08/31/25 10:41 [place] % (Auto) 8.7 % 08/31/25 10:41 Eos % (Auto) 3.7 % 08/31/25 10:41 Baso % (Auto) 0.9 % 08/31/25 10:41 Neut # (Auto) 3.56 10^3/uL (1.8-7.7) 08/31/25 10:41 Lymph # (Auto) 1.1 10^3/uL (0.8-4.8) 08/31/25 10:41 [place] # (Auto) 0.5 10^3/uL (0.2-0.9) 08/31/25 10:41 Eos # (Auto) 0.2 10^3/uL (0.0-0.8) 08/31/25 10:41 Baso # (Auto) 0.1 10^3/uL (0.0-0.1) 08/31/25 10:41 Nucleated RBC % (auto) 0 % 08/31/25 10:41 Nucleated RBCs # 0.0 /100WBC 08/31/25 10:41 Sodium 136 mmol/L (136-145) 08/31/25 10:41 Potassium 3.1 mmol/L (3.5-5.1) L 08/31/25 10:41 Chloride 102 mmol/L (98-107) 08/31/25 10:41 Carbon Dioxide 23 mmol/L (22-29) 08/31/25 10:41 Anion Gap 14.1 (5-19) 08/31/25 10:41 BUN 12 mg/dL (6-20) 08/31/25 10:41 Creatinine 0.6 mg/dL (0.5-0.9) 08/31/25 10:41 GFR Calculation 111.9 mL/min (90-130) 08/31/25 10:41 Glucose 94 mg/dL (65-115) 08/31/25 10:41 Calculated Osmolality 282 mOsm/kg (285-295) L 08/31/25 10:41 Calcium 9.2 mg/dL (8.5-10.5) 08/31/25 10:41 Total Bilirubin 0.3 mg/dL (0.15-1.2) 08/31/25 10:41 AST 15 U/L (0-32) 08/31/25 10:41 ALT 13 U/L (0-33) 08/31/25 10:41 Alkaline Phosphatase 48 U/L (35-105) 08/31/25 10:41 Total Protein 6.5 g/dL (6.6-8.7) L 08/31/25 10:41 Albumin 4.0 g/dL (3.5-5.2) 08/31/25 10:41 Globulin 2.5 g/dL (1.3-4.6) 08/31/25 10:41 HCG, Qual Negative (Negative) 08/31/25 10:41 Salicylates < 0.3 mg/dL (3-10) L 08/31/25 10:41 Urine Opiates Screen Negative ng/mL (Negative) 08/31/25 10:52 Acetaminophen < 5.0 ug/mL (10-30) L 08/31/25 10:41 Ur Barbiturates Screen Negative ng/mL (Negative) 08/31/25 10:52 Ur Phencyclidine Scrn Negative ng/mL (Negative) 08/31/25 10:52 Ur Amphetamines Screen Negative ng/mL (Negative) 08/31/25 10:52 U Benzodiazepines Scrn Negative ng/mL (Negative) 08/31/25 10:52 Urine Cocaine Screen Negative ng/mL (Negative) 08/31/25 10:52 U Marijuana (THC) Screen Negative ng/mL (Negative) 08/31/25 10:52 Ethyl Alcohol < 10 mg/dL (0-10) 08/31/25 10:41 No radiology studies performed this visit Discharge Plan Discharge Patient Disposition: Admitted As Inpatient Clinical Impression: Suicidal ideation Condition: Stable Coding Level of Care Code ED Hog Cooler for Chg Fwd Documented by User: Leni Grijalva MD 08/31/25 12:08 HPI - Psych 2 General: Chief Complaint: Psychiatric Symptoms Stated Complaint: SI Related Data Home Medications ?Medication ?Instructions ?Recorded ?Confirmed No Known Home Medications 08/31/2508/13 Allergies Allergy/AdvReac Type Severity Reaction Status Date / Time No Known Allergies Allergy Verified 03/03/21 17:10 Course 2 Vital Signs: Vital signs: Vital Signs Temperature 98.4 F 08/31/25 10:26 Pulse Rate 116 H 08/31/25 10:26 Respiratory Rate 17 08/31/25 10:26 Blood Pressure 129/84 08/31/25 10:26 Pulse Oximetry 97 08/31/25 10:26 Oxygen Delivery Me thod Room Air 08/31/25 10:26 MDM - Psych Medical Decision Making Patient presented to the Emergency Department by ambulance due to reportedly jumping out in front of traffic to try and end her life, she noted to me that this was because her has been bringing around a new girlfriend this has greatly upset her. Also had been noted to be cutting her self, bystander was the one who called EMS. She has been cooperative here in the ED, denying SI actively but certainly concerning with her attempts this afternoon. She is cleared medically, other than potassium being 3.1 in which she is given p.o. potassium chloride and will have labs ordered in the morning. I spoke to Dr. Erickson, agreeing to except to the neuro psychiatric unit. Dr. Grijalva informed of patient's case and will put in admit orders. A 6-hour hold placed, affidavits in chart. The case was discussed with: the midlevel provider. Evaluation and management service: I agree with the evaluation and management decisions made in this patient's care. Results interpretation: I agree with the study interpretation in this patient's care, I agree with the documentation of the study interpretation. Lab Data 08/31/25 10:41 08/31/25 10:41 Laboratory Results WBC 5.38 10^3/uL (3.29-11.43) 08/31/25 10:41 RBC 4.20 10^6/uL (3.85-5.65) 08/31/25 10:41 Hgb 11.70 g/dL (11.27-16.99) 08/31/25 10:41 Hct 35.5 % (36-47) L 08/31/25 10:41 MCV 84.5 fl (85-98) L 08/31/25 10:41 MCH 27.9 pg (27-33) 08/31/25 10:41 MCHC 33.0 g/dL (30-55) 08/31/25 10:41 RDW 15.4 % (12.1-15.1) H 08/31/25 10:41 Plt Count 330 10^3/cmm (157-399) 08/31/25 10:41 MPV 9.5 fL (7.4-10.4) 08/31/25 10:41 Neut % (Auto) 66.2 % 08/31/25 10:41 Lymph % (Auto) 20.1 % 08/31/25 10:41 [place] % (Auto) 8.7 % 08/31/25 10:41 Eos % (Auto) 3.7 % 08/31/25 10:41 Baso % (Auto) 0.9 % 08/31/25 10:41 Neut # (Auto) 3.56 10^3/uL (1.8-7.7) 08/31/25 10:41 Lymph # (Auto) 1.1 10^3/uL (0.8-4.8) 08/31/25 10:41 [place] # (Auto) 0.5 10^3/uL (0.2-0.9) 08/31/25 10:41 Eos # (Auto) 0.2 10^3/uL (0.0-0.8) 08/31/25 10:41 Baso # (Auto) 0.1 10^3/uL (0.0-0.1) 08/31/25 10:41 Nucleated RBC % (auto) 0 % 08/31/25 10:41 Nucleated RBCs # 0.0 /100WBC 08/31/25 10:41 Sodium 136 mmol/L (136-145) 08/31/25 10:41 Potassium 3.1 mmol/L (3.5-5.1) L 08/31/25 10:41 Chloride 102 mmol/L (98-107) 08/31/25 10:41 Carbon Dioxide 23 mmol/L (22-29) 08/31/25 10:41 Anion Gap 14.1 (5-19) 08/31/25 10:41 BUN 12 mg/dL (6-20) 08/31/25 10:41 Creatinine 0.6 mg/dL (0.5-0.9) 08/31/25 10:41 GFR Calculation 111.9 mL/min (90-130) 08/31/25 10:41 Glucose 94 mg/dL (65-115) 08/31/25 10:41 Calculated Osmolality 282 mOsm/kg (285-295) L 08/31/25 10:41 Calcium 9.2 mg/dL (8.5-10.5) 08/31/25 10:41 Total Bilirubin 0.3 mg/dL (0.15-1.2) 08/31/25 10:41 AST 15 U/L (0-32) 08/31/25 10:41 ALT 13 U/L (0-33) 08/31/25 10:41 Alkaline Phosphatase 48 U/L (35-105) 08/31/25 10:41 Total Protein 6.5 g/dL (6.6-8.7) L 08/31/25 10:41 Albumin 4.0 g/dL (3.5-5.2) 08/31/25 10:41 Globulin 2.5 g/dL (1.3-4.6) 08/31/25 10:41 HCG, Qual Negative (Negative) 08/31/25 10:41 Salicylates < 0.3 mg/dL (3-10) L 08/31/25 10:41 Urine Opiates Screen Negative ng/mL (Negative) 08/31/25 10:52 Acetaminophen < 5.0 ug/mL (10-30) L 08/31/25 10:41 Ur Barbiturates Screen Negative ng/mL (Negative) 08/31/25 10:52 Ur Phencyclidine Scrn Negative ng/mL (Negative) 08/31/25 10:52 Ur Amphetamines Screen Negative ng/mL (Negative) 08/31/25 10:52 U Benzodiazepines Scrn Negative ng/mL (Negative) 08/31/25 10:52 Urine Cocaine Screen Negative ng/mL (Negative) 08/31/25 10:52 U Marijuana (THC) Screen Negative ng/mL (Negative) 08/31/25 10:52 Ethyl Alcohol < 10 mg/dL (0-10) 08/31/25 10:41 Discharge Plan Discharge Patient Disposition: Admitted As Inpatient Clinical Impression: Suicidal ideation Condition: Stable Coding Level of Care Code ED Hog Cooler for Nicole Yen
[2025-08-31 11:16] LABS: PCP Screen Urine Negative (Negative)
[2025-08-31 11:21] LABS: Hematocrit 35.5 % (36-47); Hemoglobin 11.70 g/dL (11.27-16.99); Mean Corpuscular HGB Conc 33.0 g/dL (30-55); Mean Corpuscular Hemoglobin 27.9 pg (27-33); Mean Corpuscular Volume 84.5 fl (85-98); Nucleated Red Blood Cells % 0 %; Platelet Count 330 10^3/cmm (157-399); Red Blood Count 4.20 10^6/uL (3.85-5.65); White Blood Count 5.38 10^3/uL (3.29-11.43)
[2025-08-31 11:31] LABS: HCG, Serum Qual Negative (Negative)
[2025-08-31 11:38] LABS: Alanine Aminotransferase 13 U/L (0-33); Albumin Level 4.0 g/dL (3.5-5.2); Alkaline Phosphatase 48 U/L (35-105); Anion Gap 14.1 (5-19); Aspartate Amino Transferase 15 U/L (0-32); Blood Urea Nitrogen 12 mg/dL (6-20); Calcium 9.2 mg/dL (8.5-10.5); Carbon Dioxide 23 mmol/L (22-29); Chloride 102 mmol/L (98-107); Creatinine Clr Calc Pharmacy 121.3599; Globulin 2.5 g/dL (1.3-4.6); Glucose 94 mg/dL (65-115); Osmolality Calculated 282 mOsm/kg (285-295); Potassium 3.1 mmol/L (3.5-5.1); Sodium 136 mmol/L (136-145); Total Protein 6.5 g/dL (6.6-8.7)
[2025-08-31 11:39] LABS: Acetaminophen < 5.0 ug/mL (10-30); Alcohol Level < 10 mg/dL (0-10); Salicylate < 0.3 mg/dL (3-10)
--- NOTE | 2025-08-31 11:41 | PC.PHAR ---
patient states she is currently not taking anything
[2025-08-31 12:46] VITALS: BP 119/82; PULSE 99; RESP 16; TEMP 36.6; O2SAT 99
--- NOTE | 2025-08-31 13:14 | PC.ADMIT ---
[id number] [facility] Admission Note: The patient,Sole Mccann,40 y/o, was given written information regarding hospital policies, unit procedures and contact persons. Patient's smoking status: . Vital Signs - 8 hr 08/31/25 10:26 08/31/25 12:46 08/31/25 12:47 Temperature 98.4 F 97.9 F Pulse Rate 116 H 99 Respiratory Rate 17 16 Blood Pressure 129/84 119/82 Pulse Oximetry 97 99 Oxygen Delivery Method Room Air Room Air Room Air Pt. was brought into the ER on a 96 hr hold d/t pt. was attempting to jump out in front of traffic. Pt. says she was at the [employer] with her when he called his girlfriend to come to the store and bought her a cell phone. Pt. and are homeless was living in a car, but pt.'s family took the car because pt. was back with her . Pt. says she is staying at friends houses here and there. Pt. was in [place] in 2020 and left 2 days early, says for the most part she has been clean, but has had relaspes, one of which was this week.
--- NOTE | 2025-08-31 13:54 | PC.NURSE ---
96 hr rights reviewed with pt @[id number] with assistance of [facility] fundraising officer Juan Riley All education reviewed with pt at this time. Pt verbalized understanding to hold parameters. Pt copy was left with pt. Pt declined a drink or snack. No further needs at this time
[2025-08-31 13:56] VITALS: BP 144/99; PULSE 101; RESP 16; TEMP 36.6; O2SAT 100
[2025-08-31 20:53] VITALS: BP 119/76; PULSE 64; RESP 16; TEMP 36.5; O2SAT 99
[2025-09-01 06:00] VITALS: BP 136/92; PULSE 87; RESP 18; TEMP 36.9; O2SAT 96
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
[2025-09-01 13:21] LABS: Hematocrit 38.4 % (36-47); Hemoglobin 12.10 g/dL (11.27-16.99); Mean Corpuscular HGB Conc 31.5 g/dL (30-55); Mean Corpuscular Hemoglobin 27.6 pg (27-33); Mean Corpuscular Volume 87.5 fl (85-98); Nucleated Red Blood Cells % 0 %; Platelet Count 324 10^3/cmm (157-399); Red Blood Count 4.39 10^6/uL (3.85-5.65); White Blood Count 5.99 10^3/uL (3.29-11.43)
[2025-09-01 13:32] VITALS: BP 105/65; PULSE 88; RESP 16; TEMP 36.8; O2SAT 100
[2025-09-01 13:33] LABS: Alanine Aminotransferase 18 U/L (0-33); Albumin Level 4.1 g/dL (3.5-5.2); Alkaline Phosphatase 55 U/L (35-105); Anion Gap 15.3 (5-19); Aspartate Amino Transferase 21 U/L (0-32); Blood Urea Nitrogen 7 mg/dL (6-20); Calcium 9.1 mg/dL (8.5-10.5); Carbon Dioxide 27 mmol/L (22-29); Chloride 100 mmol/L (98-107); Creatinine Clr Calc Pharmacy 145.6319; Globulin 2.8 g/dL (1.3-4.6); Glucose 71 mg/dL (65-115); Magnesium 2.2 mg/dL (1.7-2.3); Osmolality Calculated 282 mOsm/kg (285-295); Potassium 4.3 mmol/L (3.5-5.1); Sodium 138 mmol/L (136-145); Total Protein 6.9 g/dL (6.6-8.7)
[2025-09-01 19:21] VITALS: BP 137/89; PULSE 72; RESP 16; O2SAT 100
[2025-09-02 06:00] VITALS: BP 108/69; PULSE 86; RESP 16; TEMP 36.8; O2SAT 99
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
[2025-09-02 12:56] VITALS: BP 108/69; PULSE 86; RESP 17; TEMP 36.8; O2SAT 99
== END 2025-09-02 13:44 | disposition home or self-care (01) | DRG 881 ==
LOC: ER 12:08 → NP 12:16
PROVIDERS: Admitting Provider Psychiatry & Neurology Psychiatry; Emergency Provider Physician Assistant; Visit Provider Psychiatry & Neurology Psychiatry
DX: F32.A Depression, unspecified (principal); R45.851 Suicidal ideations; Z59.00 Homelessness unspecified; F15.20 Other stimulant dependence, uncomplicated
CPT/HCPCS: 36415; 80053; 80306; 80307; 83735; 84703; 85025; 97150; 97165; 99285; J9999